=== PATIENT | female | born 1960 | race Caucasian/White ===

== ENCOUNTER → 2016-10-06 | Outpatient (CLI) | payer MEDICARE, MEDICAID ==
--- NOTE | 2016-10-06 18:29 | WOMENS IMAGING REPORT ---
EXAM DESCRIPTION: BILAT SCREENING MAMMO W/CAD COMPLETED DATE/TIME: 10/06/2016 10:23 am REASON FOR STUDY: Z12.31, ROUTINE SCREENING MAMMO Z12.31 ENCNTR SCREEN MAMMOGRAM FOR MALIGNANT NEOP LASM OF KATIE COMPARISON: Multiple since 2008 TECHNIQUE: Standard craniocaudal and mediolateral oblique views of each breast recorded using digita l acquisition. LIMITATIONS: None. FINDINGS: No masses, calcifications or architectural distortion. No areas of suspicion. Read with the assistance of CAD. .[facility] - R2 Cenova Version 1.3 .[facility] - R2 Cenova Version 1.3 .[facility] - R2 Cenova Version 2.4 .[facility] - R2 Cenova Version 2.4 .[facility] - R2 Striker Off Version 9.2 IMPRESSION: NORMAL MAMMOGRAM. BIRADS 1. BREAST DENSITY: b. There are scattered areas of fibroglandular density. BIRAD: 1 NEGATIVE RECOMMENDATION: ROUTINE SCREENING Please consider bilateral screening tomosynthesis in September 2017 COMMENT: The patient has been notified of the results by letter per [place] requirements. Additional no tification policies are in place for contacting patient with suspicious or incomplete findings. Quality ID #[id number]: The [employer] recommends an annual screening mammogram for women aged 40 years or over. This facility utilizes a reminder system to ensure that all patients receive reminder letters, and/or direct phone calls for appointments. This includes reminders for routine scr eening mammograms, diagnostic mammograms, or other Breast Imaging Interventions when appropriate. Th is patient will be placed in the appropriate reminder system. The [employer] (ACR) has developed recommendations for screening MRI of the breast s in certain patient populations, to be used in conjunction with mammography. Breast MRI surveillanc e may be appropriate for women with more than 20% lifetime risk of developing breast cancer as deter mined by genetic testing, significant family history of the disease, or history of mantle radiation f or Hodgkins Disease. ACR Practice Guidelines 2008. TECHNICAL DOCUMENTATION: FINDING NUMBER: (1) ASSESSMENT: (1) JOB ID: [id number] [employer]- All Rights Reserved
== END ==
LOC: WI 10:03
PROVIDERS: ATTEND Physician Assistant
DX: Z12.31 Encounter for screening mammogram for malignant neoplasm of breast (principal)
CPT/HCPCS: 77067; G0202

== ENCOUNTER → 2017-10-28 | Outpatient (CLI) | payer MEDICARE, MEDICAID ==
--- NOTE | 2017-10-28 16:53 | WOMENS IMAGING REPORT ---
EXAM DESCRIPTION: BILAT SCREENING MAMMO W/CAD COMPLETED DATE/TIME: 10/28/2017 10:55 am REASON FOR STUDY: SCREENING MAMMO Z12.31 ENCNTR SCREEN MAMMOGRAM FOR MALIGNANT NEOPLASM OF KATIE COMPARISON: 2013 to 2016 TECHNIQUE: Standard craniocaudal and mediolateral oblique views of each breast recorded using digita l acquisition. LIMITATIONS: None. FINDINGS: No masses, calcifications or architectural distortion. No areas of suspicion. Read with the assistance of CAD. .[facility] - R2 Cenova Version 1.3 .[facility] - R2 Cenova Version 1.3 .[facility] - R2 Cenova Version 2.4 .[facility] - R2 Cenova Version 2.4 .[facility] - R2 Chest Pain Coordinator Version 9.2 IMPRESSION: NORMAL MAMMOGRAM. BIRADS 1. BREAST DENSITY: b. There are scattered areas of fibroglandular density. BIRAD: 1 NEGATIVE RECOMMENDATION: ROUTINE SCREENING COMMENT: The patient has been notified of the results by letter per MQSA requirements. Additional no tification policies are in place for contacting patient with suspicious or incomplete findings. Quality ID #[id number]: The [employer] recommends an annual screening mammogram for women aged 40 years or over. This facility utilizes a reminder system to ensure that all patients receive reminder letters, and/or direct phone calls for appointments. This includes reminders for routine scr eening mammograms, diagnostic mammograms, or other Breast Imaging Interventions when appropriate. Th is patient will be placed in the appropriate reminder system. The [employer] (ACR) has developed recommendations for screening MRI of the breast s in certain patient populations, to be used in conjunction with mammography. Breast MRI surveillanc e may be appropriate for women with more than 20% lifetime risk of developing breast cancer as deter mined by genetic testing, significant family history of the disease, or history of mantle radiation f or Hodgkins Disease. ACR Practice Guidelines 2008. TECHNICAL DOCUMENTATION: FINDING NUMBER: (1) ASSESSMENT: (1) JOB ID: [id number] [employer]- All Rights Reserved Reading location - IP/workstation name: [email or web address]
== END ==
LOC: WI 10:34
PROVIDERS: ATTEND Nurse Practitioner Family
DX: Z12.31 Encounter for screening mammogram for malignant neoplasm of breast (principal)
CPT/HCPCS: 77067

== ENCOUNTER 2020-04-11 13:19 | Emergency (ER) | payer MEDICARE, MEDICAID ==
[2020-04-11 13:27] VITALS: BP 139/97
[2020-04-11] MEDS ORDERED: CEPHALEXIN 500 MG CAPSULE PO ONE (13:49)
--- NOTE | 2020-04-11 13:55 | ER Document Report ---
ED Extremity Problem, Lower - General Chief Complaint: Leg Pain Stated Complaint: SKIN PROBLEM Time Seen by Provider: 04/11/20 13:36 Primary Care Provider: NESS SAMPSON NP [Primary Care Provider] - Follow up as needed Mode of Arrival: Ambulatory Information source: Patient TRAVEL OUTSIDE OF THE [place] IN LAST 30 DAYS: No - HPI Patient complains to provider of: Pain, Swelling Location: Leg Notes: Patient here with complaints of left leg pain, redness. Patient is a type II diabetic. She states she does not typically check her blood sugar. She went to get labs drawn today and was told by the staff there to come here for evaluation of her left leg. She states that 2 days ago she noticed a sore area to the left anterior watts with some mild redness. She denies any known injury to this area. She had no fevers. She denies any drainage. No bleeding. She denies any numbness, tingling, weakness. No chest pain or shortness of breath. No abdominal pain. No nausea, vomiting, diarrhea. Pain in leg is mild to moderate, constant, worse with palpation, better with rest. She denies any other specific complaints at this time. - Related Data Allergies/Adverse Reactions: No Known Allergies Allergy (Verified 04/11/20 13:32) Home Medications: pt is unsure of name Past Medical History - Social History Smoking Status: Unknown if Ever Smoked Frequency of alcohol use: None Drug Abuse: None Family History: Reviewed & Not Pertinent Review of Systems - Review of Systems -: Yes All other systems reviewed and negative Physical Exam - Vital signs Vitals: Temp Pulse Resp BP Pulse Ox 98.5 F 114 H 16 139/97 H 98 04/11/20 13:23 04/11/20 13:23 04/11/20 13:23 04/11/20 13:23 04/11/20 13:23 - Notes Notes: GENERAL: alert, cooperative, nontoxic, no distress. HEAD: normocephalic, atraumatic EYES: conjunctiva pink without discharge, no external redness or swelling. EARS: no external swelling, no external redness NOSE: atraumatic, no external swelling MOUTH/THROAT: mucous membranes moist and pink NECK: soft, supple, full range of motion, no meningismus. CHEST: no distress, lungs clear and equal throughout. No wheezing, rales, rhonchi. CARDIAC: regular rate and rhythm, no murmur EXTREMITIES: full range of motion of all extremities. Patient with a small scabbed area to the left anterior watts with some mild surrounding erythema. No palpable abscess. Normal pulse and sensation distally. Compartments are soft. NEURO: alert and oriented 3, no focal deficits, full range of motion of all extremities. PYSCH: appropriate mood, affect. Patient is cooperative. SKIN: pink, warm, dry, no rash. Course - Re-evaluation Re-evalutation: 04/11/20 13:55 Patient is nontoxic-appearing with stable vitals. Initial heart rate was noted to be mildly elevated. After the patient had time to sit and relax, repeat heart rate was 80. Patient is here with complaints of left watts pain. She is a diabetic. She states that she does not use insulin. She has been taking her diabetic medications but she does not check her blood sugars. Blood sugar here is 294. Patient overall looks well. She is noted to have a scabbed area with some mild surrounding redness to the left watts. I unroofed the scab with a 18- gauge needle. There is no purulent drainage, small amount of blood was noted. Appears that the patient has a mild early cellulitis. Overall she looks well. Blood sugar is under 300. She is afebrile. At this point the patient will be given a dose of oral antibiotics and will be discharged home with antibiotics and wound care instructions. She is instructed to follow-up with her primary care doctor in 2 days for recheck of the wound. Follow-up sooner or return emergency department for worsening pain, spreading redness, high fever, persistent vomiting, or for any further concerns. The patient's emergency department workup and current diagnosis were explained to the patient and or family. Follow-up instructions were provided. Medications if prescribed were discussed. Instructions for when to return to the emergency department including specific worrisome symptoms were discussed with the patient and/or family. - Vital Signs Vital signs: Temp Pulse Resp BP Pulse Ox 98.5 F 114 H 16 139/97 H 98 04/11/20 13:23 04/11/20 13:23 04/11/20 13:23 04/11/20 13:23 04/11/20 13:23 - Laboratory Results Critical Laboratory Results Reviewed: No Critical Results - Radiology Results Critical Radiology Results Reviewed: No Critical Results Discharge - Discharge Clinical Impression: Cellulitis, leg Qualifiers: Laterality: left Qualified Code(s): L03.116 - Cellulitis of left lower limb Hyperglycemia due to type 2 diabetes mellitus Qualifiers: Diabetes mellitus terminal manager insulin use: without terminal manager use Qualified Code(s): E11.65 - Type 2 diabetes mellitus with hyperglycemia Condition: Stable Disposition: HOME, SELF-CARE Instructions: Cellulitis ([facility]), Hyperglycemia ([facility]) Additional Instructions: Take medications as prescribed. Monitor your blood sugar closely. Clean the wound twice a day with soap and water and cover with a bandage. Follow-up with your doctor on Thursday for reevaluation of your wound. Follow-up sooner for worsening pain, fever, redness, numbness, tingling, weakness, chest pain or shortness of breath, or any further concerns. Prescriptions: Cephalexin Monohydrate [Keflex 500 mg Capsule] 500 mg PO Q6H #40 capsule Diclofenac Sodium [Voltaren 50 Mg Tablet.] 50 mg PO BID #20 tablet. Referrals: NESS SAMPSON AERIAL SURVEY TECHNICIAN [Primary Care Provider] - Follow up as needed
== END 2020-04-11 13:56 | disposition home or self-care (01) ==
LOC: ER 13:19
DX: L03.116 Cellulitis of left lower limb (principal); E11.65 Type 2 diabetes mellitus with hyperglycemia; Z79.899 Other long term (current) drug therapy
CPT/HCPCS: 99283; 82962; A9270

== ENCOUNTER 2020-04-17 10:40 | Emergency (ER) | payer MEDICARE, MEDICAID ==
[2020-04-17] MEDS ORDERED: NORMAL SALINE 1000 ML 1,000 ML IV ONE (13:36)
--- NOTE | 2020-04-17 13:36 | ER Document Report ---
ED General - General Chief Complaint: Leg Pain Stated Complaint: LEG PAIN Time Seen by Provider: 04/17/20 13:04 Primary Care Provider: NESS SAMPSON NP [Primary Care Provider] - Follow up as needed TRAVEL OUTSIDE OF THE [place] IN LAST 30 DAYS: No - HPI Notes: Patient is a 59-year-old female with a history of diabetes who presents emergency department for evaluation of a wound on her leg. The patient, and her mother in fact, are very poor historians. They state that the wound has been there for months. They state "sometimes it pains her, sometimes it does not." She was seen here in the emergency department last week, the wound was deroofed, no purulent material was noted. She was started on Keflex, but per the family it appears more red. She said no fevers or chills. No nausea or vomiting. She is eating and drinking normally. She has had some constipation this morning, but otherwise denies any other acute complaints. When asked what her sugar is, she admits that it is not frequently checked. - Related Data Allergies/Adverse Reactions: No Known Allergies Allergy (Verified 04/11/20 13:32) Home Medications: List reviewed at bedside Past Medical History - General Information source: Patient, Parent - Social History Smoking Status: Never Smoker Family History: Reviewed & Not Pertinent - Past Medical History Cardiac Medical History: Reports: Hx Hypertension Neurological Medical History: Reports: Other - Diabetic neuropathy Endocrine Medical History: Reports: Hx Diabetes Mellitus Type 2 Review of Systems - Review of Systems Constitutional: No symptoms reported EENT: No symptoms reported Cardiovascular: No symptoms reported Respiratory: No symptoms reported Gastrointestinal: See HPI Genitourinary: No symptoms reported Musculoskeletal: No symptoms reported Skin: See HPI Neurological/Psychological: No symptoms reported Physical Exam - Vital signs Vitals: Temp Pulse Resp BP Pulse Ox 98.0 F 101 H 20 93/57 L 97 04/17/20 11:05 04/17/20 11:05 04/17/20 11:05 04/17/20 11:05 04/17/20 11:05 - Notes Notes: This is a pleasant 59-year-old female who appears her stated age, in no acute distress. Vital signs reviewed, please refer to chart. Head is normocephalic, atraumatic. Pupils equal round, reactive to light. Neck is supple without meningismus. Heart is regular rate and rhythm. Lungs are clear to auscultation bilaterally. Abdomen is soft, nontender, normoactive bowel sounds throughout. Extremities without cyanosis, clubbing. There is 1+ pitting edema to the pretibial regions bilaterally. Examination of the left anterior watts yields an approximately 4 cm chronic appearing wound with surrounding erythema that appears mostly reactive. There is a diffuse erythematous change to bilateral legs, that appears more chronic and vasculitic. Posterior calves are nontender. Peripheral pulses are equal. Skin is otherwise warm and dry. Patient is awake, alert, neurological exam is nonfocal. Course - Re-evaluation Re-evalutation: 04/17/20 13:36 Patient presents to the emergency department for evaluation. She had been seen here last week. She was mildly tachycardic then but normotensive. Here her blood pressure was borderline hypotensive. Her heart rate is higher. I will get some blood work, on this patient who is a diabetic, who does not frequently check her sugar, and whose vital signs are concerning for possible underlying sepsis. On examination of this wound, however, I do not have a strong suspicion of an infectious etiology. It appears more chronic in nature. Patient is currently stable, we will continue to monitor. 04/17/20 16:38 Patient's laboratory investigations revealed some mild hyperglycemia but otherwise is largely unremarkable. Again I suspect that this is chronic appearing changes secondary to some mild edema. She has no posterior calf tenderness. This wound has been here for months. I think she would most benefit from wound care. I do speak with Dawna in the wound care office, they will contact the patient for follow-up. All of nursing simply bandage the wound with antibiotic ointment. She is to return to the ED with worsening. - Vital Signs Vital signs: Temp Pulse Resp BP Pulse Ox 98.0 F 101 H 20 93/57 L 97 04/17/20 11:05 04/17/20 11:05 04/17/20 11:05 04/17/20 11:05 04/17/20 11:05 - Laboratory Results Result Diagrams: 04/17/20 13:55 04/17/20 15:30 Laboratory Results Interpreted: 04/17/20 04/17/20 04/17/20 13:55 13:55 15:30 WBC 11.6 H RDW 14.3 H Lymph % (Auto) 9.8 L Absolute Neuts (auto) 9.6 H Seg Neutrophils % 83.2 H Glucose 225 H Lactic Acid 2.9 H ALT 46 H Critical Laboratory Results Reviewed: No Critical Results - Radiology Results Critical Radiology Results Reviewed: No Critical Results Discharge - Discharge Clinical Impression: Wound of left lower extremity Qualifiers: Encounter type: subsequent encounter Qualified Code(s): S81.802D - Unspecified open wound, left lower leg, subsequent encounter Condition: Stable Disposition: HOME, SELF-CARE Instructions: Dressing Instructions for Open Wounds ([facility]) Additional Instructions: You have been referred on to wound care. Simply keep the area clean with soap and water, protect from contamination. If you develop fevers, vomiting, increased pain, or any other new or concerning symptoms, please return immediately to the emergency department for evaluation. W[facility] Care [facility] Referrals: NESS SAMPSON NP [Primary Care Provider] - Follow up as needed
[2020-04-17 14:12] LABS: ABSOLUTE EOSINOPHILS # (AUTO) 0.1 10^3/uL (0.0-0.6); ABSOLUTE LYMPHOCYTES (AUTO) 1.1 10^3/uL (0.5-4.7); ABSOLUTE MONOCYTES (AUTO) 0.7 10^3/uL (0.1-1.4); ABSOLUTE NEUT (AUTO) 9.6 10^3/uL (1.7-8.2); BASOPHILS % (AUTO) 0.3 % (0-2); EOSINOPHILS % (AUTO) 0.6 % (0-6); HEMATOCRIT 36.1 % (36.0-47.0); LYMPHOCYTES % (AUTO) 9.8 % (13-45); MEAN CORPUSCULAR HEMOGLOBIN 29.4 pg (27.0-33.4); MEAN CORPUSCULAR HGB CONC 33.4 g/dL (32.0-36.0); MEAN CORPUSCULAR VOLUME 88 fl (80-97); MONOCYTES % (AUTO) 6.1 % (3-13); PLATELET COUNT 234 10^3/uL (150-450); RED BLOOD COUNT 4.09 10^6/uL (3.72-5.28); RED CELL DISTRIBUTION WIDTH 14.3 % (11.5-14.0); SEGMENTED NEUTROPHILS % (AUTO) 83.2 % (42-78); TOTAL CELLS COUNTED % (AUTO) 100 %; WHITE BLOOD COUNT 11.6 10^3/uL (4.0-10.5)
[2020-04-17 14:15] LABS: VENOUS BLOOD BASE EXCESS 1.4 mmol/L; VENOUS BLOOD HCO3 26.7 mmol/L (20-32); VENOUS BLOOD PCO2 45.1 mmHg (35-63); VENOUS BLOOD PH 7.39 (7.30-7.42)
[2020-04-17 14:17] LABS: INTERNATIONAL RATION (INR) 1.03; PROTHROMBIN TIME 13.7 SEC (11.4-15.4)
[2020-04-17 16:12] LABS: ALKALINE PHOSPHATASE 70 U/L (38-126); ANION GAP 9 (5-19); ASPARTATE AMINO TRANSFERASE 30 U/L (14-36); BILIRUBIN,DIRECT 0.2 mg/dL (0.0-0.4); BILIRUBIN,TOTAL 0.5 mg/dL (0.2-1.3); BLOOD UREA NITROGEN 16 mg/dL (7-20); CALCIUM 10.2 mg/dL (8.4-10.2); CARBON DIOXIDE 29 mmol/L (22-30); CHLORIDE 99 mmol/L (98-107); GLUCOSE 225 mg/dL (75-110); POTASSIUM 4.3 mmol/L (3.6-5.0)
[2020-04-17 17:00] VITALS: BP 134/72
--- NOTE | 2020-04-17 18:49 | EKG REPORT ---
SEVERITY:- BORDERLINE ECG - SINUS RHYTHM BORDERLINE INFERIOR Q WAVES BORDERLINE T WAVE ABNORMALITIES : Confirmed by: Zbigniew Farmer MD 17-Apr-2020 18:48:20
== END 2020-04-17 16:59 | disposition home or self-care (01) ==
LOC: ER 10:40
DX: S81.802A Unspecified open wound, left lower leg, initial encounter (principal); X58.XXXA Exposure to other specified factors, initial encounter; R60.0 Localized edema; E11.65 Type 2 diabetes mellitus with hyperglycemia; E11.40 Type 2 diabetes mellitus with diabetic neuropathy, unspecified; I10 Essential (primary) hypertension
CPT/HCPCS: 93005; 99284; 96360; 36415; 87040; 83605; 85025; 85610; 80053; 82803; 93010; J7030